=== PATIENT | male | born 1990 ===

== ENCOUNTER 2021-05-23 18:21 | Emergency (ER) | payer SELFPAY ==
[2021-05-23 18:37] VITALS: BP 149/99; PULSE 91; RESP 12; TEMP 36.9; O2SAT 99; BMI 29.2
--- NOTE | 2021-05-23 20:08 | ED_ITS ---
HPI - Eye Problem General: Chief complaint: Eye Problems Stated complaint: Metal in Left Eye Time Seen by Provider: 05/23/21 20:07 History of Present Illness: 31-year-old male patient comes in today with a speck of metal in his left cornea. Patient was grinding and a speck of metal g ot into his eye. Patient appears well. Patient appears no acute distress. chief complaint: eye pain Onset (ago): hour(s) Onset description: sudden Location: left eye Associated symptoms: Denies fever(s) Review of Systems General: Reports: 10 or more systems reviewed and unremarkable except in HPI and below Const: Denies: fever(s) Eyes: Reports: eye discomfort and eye discharge ENMT: Denies: throat pain Card: Denies: chest pain Resp: Denies: dyspnea PFSH ED PFSH: Social History Smoking and tobacco status: never smoked Physical Exam Const: COMMON NORMALS: alert HENMT: NOSE: Nasal discharge present Eye: COMMON NORMALS: Equal, round and reactive pupils present VISUAL ACUITY: Yes acuity normal EYELID: eyelids normal CORNEA: Yes fluorescein used and other (7 o'clock position in the iris is a speck foreign body) PUPIL: Yes Equal, round and reactive pupils present Neck/C-Spine: COMMON NORMALS: full ROM Resp: COMMON NORMALS: normal respiratory effort Cardio: COMMON NORMALS: regular rate and regular rhythm RATE: regular rate RHYTHM: regular rhythm Extremity: COMMON NORMALS: normal to inspection Neuro: SENSORIUM/ORIENTATION: Yes alert Procedures FB Removal Eye Location: eye (L) Topical anesthetic used: tetracaine Foreign body: metal Evidence of corneal penetration: No Technique: cotton tip swab and needle Procedure performed under: direct visualization with magnification Post-procedure medication: ophthalmic antibiotic and topical anesthetic Patient tolerated procedure: well Course Vital Signs: Vital signs: Vital Signs Temperature 98.5 F 05/23/21 18:37 Pulse Rate 91 05/23/21 18:37 Respiratory Rate 12 05/23/21 18:37 Blood Pressure 149/99 05/23/21 18:37 Pulse Oximetry 99 05/23/21 18:37 MDM - Eye Problem Medical Decision Making Patient comes in for a piece of metal in his left eye. On exam we note a small speck of metal to the 7 o'clock position within the iris to the left high cornea. No sign of penetration or laceration is noted. Pupils are equal and reactive. Acuity is normal. Differential diagnosis includes foreign body, corneal abrasion, eye penetration. Metal was removed with a 22-gauge needle under local anesthetic of tetracaine. Patient tolerated well. Fluorescein staining was used afterwards to note no further injury. Patient reported improvement in pain and discomfort. Patient reported understanding of care plan and need for follow-up with [facility] corporate account director. Discharge Plan Discharge Patient Disposition: Home Clinical Impression: Foreign body in cornea, left eye, initial encounter Condition: Stable Prescriptions: No Action No Known Home Medications 0RF Discharge Orders: Discharge ED (Routine); Ordered 05/23/21 Ordered By: Venkata Cronin Discharge Diet: Usual diet Discharge Activity: Increase activity as tolerated Patient Instructions: Eye Foreign Body (ED) Activity Restrictions/Additional Instructions: Use tetracaine, eyedrops for pain, 1 drop every 3 hours as needed for pain for the next 2 days. Use antibiotic eyedrops, neomycin?polymyxin?dexamethasone suspension, 2 drops 4 times a day while awake for the next 7 days. Use acetaminophen ibuprofen otherwise for pain and discomfort. Follow-up with [facility] corporate account director in 3 days for recheck. Return to ER for new concerns or worsening symptoms. Use tetraca?na, gotas para los ojos para el dolor, 1 gota cada 3 horas seg?n sea necesario para el dolor sree los pr?ximos 2 d?as. Use colirio antibi?arpita, suspensi?n de serpzlapr-vehqacobbl-fhgwysvaohhd, 2 gotas 4 veces al d?a mientras est? despierto sree los pr?ximos 7 d?as. Use paracetamol ibuprofeno de lo contrario para el dolor y la incomodidad. Seguimiento con un especialista en atenci?n de la vista en 3 d?as para mignon nueva revisi?n. Regrese a la noemí de emergencias por nuevas preocupaciones o empeoramiento de los s?ntomas Coding Level of Care Code ED Mgmt Analyst for Dari Collier
[2021-05-23] MEDS: fluorescein 1 mg Strip EYE-LEFT (20:38)
[2021-05-23] MEDS: tetracaine 0.5% Op Soln 4 mL Btl 1 DROP EYE-LEFT (20:38)
[2021-05-23] MEDS: eye irrigation 30 mL Btl EYE-LEFT (20:38)
[2021-05-23] MEDS: neomycin-poly-dex Op 5 mL Btl 2 DROP EYE-LEFT (20:39)
[2021-05-23 20:41] VITALS: BP 154/117; PULSE 84; RESP 18; TEMP 37; O2SAT 98
== END 2021-05-23 20:43 | disposition home or self-care (01) ==
PROVIDERS: Emergency Provider Nurse Practitioner Family
DX: T15.02XA Foreign body in cornea, left eye, initial encounter (principal); X58.XXXA Exposure to other specified factors, initial encounter
CPT/HCPCS: 65220; 65222; 99283